=== PATIENT | male | born 1975 | race Two or more races ===

== ENCOUNTER 2016-12-03 07:17 | Day surgery (SDC) | payer BC ==
[~2016-12-03] VITALS: Ht 167.6 cm; Wt 75.0 kg
[2016-12-03 07:42] VITALS: BP 139/85
[2016-12-03] MEDS ORDERED: ATOR40TA PO (07:47)
[2016-12-03] MEDS ORDERED: CARV-39 PO (07:47)
[2016-12-03] MEDS ORDERED: SODIUM CHLORIDE 0.9% 1,000 ML IV SCH (07:47)
[2016-12-03] MEDS ORDERED: FURO-93 PO (07:47)
[2016-12-03] MEDS ORDERED: AMLO10TA2 PO (07:47)
[2016-12-03] MEDS ORDERED: HYDR100T25 PO (07:47)
[2016-12-03] MEDS ORDERED: CHOL5000 PO (07:47)
[2016-12-03] MEDS ORDERED: CLOP75TA22 PO (07:47)
[2016-12-03] MEDS ORDERED: FENTANYL PF 100 MCG/2ML ONE (08:55)
[2016-12-03] MEDS ORDERED: NALOXONE 1 MG/ML, 2ML ONE (08:55)
[2016-12-03] MEDS ORDERED: MIDAZOLAM 1 MG/ML, 5ML ONE (08:55)
[2016-12-03] MEDS ORDERED: FLUMAZENIL 0.1 MG/1 ML, 5ML ONE (08:55)
== END 2016-12-03 13:15 | disposition home or self-care (01) ==
LOC: OUT 07:17
PROVIDERS: ATTEND Internal Medicine Nephrology
DX: I12.0 Hypertensive chronic kidney disease with stage 5 chronic kidney disease or end stage renal disease (principal); N18.5 Chronic kidney disease, stage 5; F17.210 Nicotine dependence, cigarettes, uncomplicated; F12.90 Cannabis use, unspecified, uncomplicated
CPT/HCPCS: 36415; 50200; 77012; 85610; 88300; J2250; J3010; 99156; 99157; J2310